=== PATIENT | male | born 1960 | race Caucasian/White ===

== ENCOUNTER 2019-11-21 17:07 | Emergency (ER) | payer OTHER ==
[~2019-11-21] VITALS: Ht 180.3 cm; Wt 104.5 kg
[2019-11-21 17:22] VITALS: BP 106/55; Ht 180.3 cm; Wt 104.5 kg
[2019-11-21] MEDS ORDERED: ZANAFLEX4 MG PO (17:25)
[2019-11-21] MEDS ORDERED: SEROQUEL100 MG PO (17:25)
[2019-11-21] MEDS ORDERED: XARELTO15 MG PO (17:26)
== END 2019-11-21 19:10 | disposition left against medical advice (07) ==
LOC: D.ER 17:07
DX: M25.512 Pain in left shoulder (principal); M25.511 Pain in right shoulder; G89.29 Other chronic pain; M54.9 Dorsalgia, unspecified